=== PATIENT | female | born 1955 | race Caucasian/White ===

== ENCOUNTER 2019-01-13 20:42 | Emergency (ER) | payer MEDICAID ==
[~2019-01-13] VITALS: Ht 154.9 cm; Wt 79.9 kg
[~2019-01-13 20:42] MED LIST: AMLO-145 PO
[2019-01-13 20:44] VITALS: Ht 154.9 cm; Wt 79.9 kg
[2019-01-13 23:09] VITALS: BP 166/81; PULSE 57; RESP 18
--- NOTE | 2019-01-14 04:24 | ERD ---
ER Documentation Chief Complaint Chief Complaint MED REFILL REQUEST; AMLODIPINE 5MG (3 MORE LEFT) HPI This patient is a 64-year-old female with past medical history of hypertension presenting to the emergency department requesting refill of her amlodipine besylate 5 mg daily. She states she has 3 more pills left and has not missed a dose. She denies any headache, blurry vision, chest pain, shortness of breath, or other symptoms at this time. ROS All systems reviewed and are negative except as per history of present illness. Medications Home Meds Active Scripts Amlodipine Besylate* (Amlodipine Besylate*) 5 Mg Tablet, 5 MG PO DAILY, #60 TAB Prov:RANDEE LANE PA-C 01/13/19 PMhx/Soc History of Surgery: Yes (appi) Anesthesia Reaction: No Hx Neurological Disorder: No Hx Respiratory Disorders: No Hx Cardiac Disorders: Yes (HTN) Hx Psychiatric Problems: No Hx Miscellaneous Medical Probl: No Hx Alcohol Use: No Hx Substance Use: No Hx Tobacco Use: No Smoking Status: Never smoker FmHx Family History: No diabetes Physical Exam Vitals Vital Signs Date Temp Pulse Resp B/P (MAP) Pulse Ox O2 O2 Flow FiO2 Time Delivery Rate 01/13/19 97.6 57 18 166/81 100 Room Air 23:09 (109) 01/13/19 99.8 58 19 159/87 99 20:44 (111) Physical Exam Const: No acute distress Head: Atraumatic Eyes: Normal Conjunctiva ENT: Normal External Ears, Nose and Mouth. Neck: Full range of motion. No meningismus. Resp: Clear to auscultation bilaterally Cardio: Regular rate and rhythm, no murmurs Skin: No petechiae or rashes Ext: No cyanosis, or edema Neur: Awake and alert Psych: Normal Mood and Affect Procedures/MDM 64-year-old female presenting requesting refill of her amlodipine prescription. She will be given 60-day supply exactly as prescribed by her primary care physician. She has no evidence of hypertensive emergency or urgency. She denies all complaints at this time. She is advised she can return here for any new, worsening, or concerning symptoms. Departure Diagnosis: Primary Impression: Encounter for medication refill Condition: Fair Patient Instructions: Taking Medicine Safely Referrals: COMMUNITY CLINICS YOU HAVE RECEIVED A MEDICAL SCREENING EXAM AND THE RESULTS INDICATE THAT YOU DO NOT HAVE A CONDITION THAT REQUIRES URGENT TREATMENT IN THE EMERGENCY DEPARTMENT. FURTHER EVALUATION AND TREATMENT OF YOUR CONDITION CAN WAIT UNTIL YOU ARE SEEN IN YOUR DOCTORS OFFICE WITHIN THE NEXT 1-2 DAYS. IT IS YOUR RESPONSIBILITY TO MAKE AN APPOINTMENT FOR FOLOW-UP CARE. IF YOU HAVE A PRIMARY DOCTOR --you should call your primary doctor and schedule an appointment IF YOU DO NOT HAVE A PRIMARY DOCTOR YOU CAN CALL OUR PHYSICIAN REFERRAL HOTLINE AT IF YOU CAN NOT AFFORD TO SEE A PHYSICIAN YOU CAN CHOSE FROM THE FOLLOWING [facility] [address] [facility] [facility] [facility]. [facility] [address] [address] [facility] [address] [facility]. [facility] [address] [facility]. [facility] [address] [facility]. [facility]. [address] Additional Instructions: Call your primary care doctor TOMORROW for an appointment during the next 1-2 days.See the doctor sooner or return here if your condition worsens before your appointment time. RANDEE LANE PA-C Jan 14, 2019 04:24
== END 2019-01-13 23:11 | disposition home or self-care (01) ==
LOC: FTE 20:42
DX: Z76.0 Encounter for issue of repeat prescription (principal); I10 Essential (primary) hypertension
CPT/HCPCS: 99281